=== PATIENT | female | born 1970 | race Caucasian/White ===

== ENCOUNTER 2018-03-21 06:12 | Day surgery (SDC) | payer SELFPAY ==
[2018-03-20 15:09] VITALS: BMI 29.2
[2018-03-21] MEDS ORDERED: ceFAZolin SODIUM 1 GM VIAL ONE ×3 (06:59→22:21)
[2018-03-21] MEDS ORDERED: HEPARIN NA (PORCINE) 5,000 UNITS/ML 1ML VIAL ONE (06:59)
[2018-03-21] MEDS ORDERED: EPINEPHrine/PF 1 MG/1 ML (1:1,000) AMPULE ONE (07:25)
[2018-03-21] MEDS ORDERED: BUPIVACAINE HCL/PF 0.25% (2.5MG/ML) 10 ML VIAL ONE ×2 (07:26→09:57)
[2018-03-21] MEDS ORDERED: LIDOCAINE HCL 1%, 10 MG/ML (20ML VIAL) ONE (07:26)
[2018-03-21] MEDS ORDERED: fentaNYL CITRATE 250 MCG/5 ML VIAL ONE (07:49)
[2018-03-21] MEDS ORDERED: ROCURONIUM BROMIDE 50 MG/5 ML VIAL ONE (07:49)
[2018-03-21] MEDS ORDERED: MIDAZOLAM HCL 2 MG/2 ML SINGLE DOSE VIAL ONE (07:49)
[2018-03-21] MEDS ORDERED: PROPOFOL 20 ML ONE (07:49)
[2018-03-21] MEDS ORDERED: LIDOCAINE HCL/PF 2% SDV 5ML VIAL ONE (07:50)
[2018-03-21] MEDS ORDERED: ceFAZolin SODIUM 1 GM VIAL IVPB ONE (08:13)
[2018-03-21] MEDS ORDERED: SODIUM CHLORIDE 0.9% P/F 10 ML VIAL IJ ONE (08:16)
[2018-03-21] MEDS ORDERED: DEXAMETHASONE SOD PHOSPHATE 4 MG/1 ML VIAL ONE ×2 (08:33→11:44)
[2018-03-21] MEDS ORDERED: BUPIVACAINE HCL/PF 0.25% (2.5MG/ML) 10 ML VIAL IJ ONE (10:20)
[2018-03-21] MEDS ORDERED: GLYCOPYRROLATE 0.2 MG/1 ML VIAL ONE ×2 (11:19→11:36)
[2018-03-21] MEDS ORDERED: NEOSTIGMINE METHYLSULFATE 0.5 MG/ML - 10 ML MDV ONE (11:19)
[2018-03-21] MEDS ORDERED: BACITRACIN 15 GM TUBE TOPICAL OINTMENT ONE (11:43)
[2018-03-21] MEDS ORDERED: BACITRACIN 15 GM TUBE TOPICAL OINTMENT TP ONE (11:57)
[2018-03-21] MEDS ORDERED: METOPROLOL TARTRATE 5 MG/5 ML VIAL ONE (12:01)
[2018-03-21] MEDS ORDERED: ONDANSETRON 4 MG/2 ML VIAL IVPB PRN (12:12)
[2018-03-21] MEDS ORDERED: PROMETHAZINE HCL 25 MG/1 ML VIAL IVPUSH PRN (12:14)
[2018-03-21] MEDS ORDERED: ONDANSETRON 4 MG/2 ML VIAL IVPUSH PRN (12:14)
[2018-03-21] MEDS ORDERED: LACTATED RINGERS SOLUTION 1,000 ML IV SCH ×2 (12:15)
--- NOTE | 2018-03-21 12:19 | OP ---
Operative Note - Note: Operative Date: 03/21/18 Pre-Operative Diagnosis: abdominal deformity Operation: abdominoplasty with flank liposuction Post-Operative Diagnosis: Same as Pre-op Surgeon: Brian Mullins Anesthesia: General
--- NOTE | 2018-03-21 13:58 | OP ---
DATE OF OPERATION: 03/21/2018 TITLE OF PROCEDURE: Abdominoplasty with bilateral flank liposuction. PREOPERATIVE DIAGNOSIS: Abdominal and flank lipodystrophy. POSTOPERATIVE DIAGNOSIS: Abdominal and flank lipodystrophy. ATTENDING SURGEON: Brian Archer MD ASSISTANTS: None. ANESTHESIA: General endotracheal. Patient is seen in the holding area. She had been counseled on all risks, benefits, and alternatives to the procedure, understands, and agrees to proceed. She is marked in a standing position, wide awake, aware of all incisions and resulting scars. The patient is then given 5000 units of subcutaneous heparin. She is given FLORA hose and sequential compression stockings. She is brought into the operating room, placed in a supine position. All position is checked by surgical and anesthesia teams, and all pressure points are carefully padded. A pillow is placed beneath the knees. Newton catheter is placed after induction of general anesthesia, which was removed at the end of the procedure. After anesthesia is given, she was prepped and draped in standard surgical fashion. A timeout is called. Patient, procedure, site, and sides are verified. DESCRIPTION OF PROCEDURE: An incision is made along the infrapannicular crease. The dissection is carried down to the level of the abdominal wall fascia. Dissection is carried along the abdominal wall fascia, ligating any perforating blood vessels to the level of the umbilicus. The umbilicus is then circumcised and developed on a fibrofatty stalk to the base of the fascia. Dissection is then continued cephalad to the xiphoid process and midline costal margins bilaterally. The midline plication is then performed with a series of interrupted, buried, figure-of-8 number 1 Prolene sutures both superior and inferior to the umbilicus. A second layer of running locking number 1 Prolene suture is then used both inferior and superior to the umbilicus for reinforcement. Adequate space is given at the umbilicus for translocation. The wound is copiously irrigated. Hemostasis is meticulously achieved. The patient is brought to a 30-degree flexed position where the abdominoplasty flap is marked for its resection. The skin is tailor tacked. The resection is performed. Hemostasis is once again meticulously achieved, and skin is tailor tacked once again for alignment for closure. The umbilicus is then marked. It is planned for translocation with a Star Trek pattern incision on the abdominoplasty flap. The umbilicus is then itself converted into the same pattern. Defect is created on the abdominoplasty flap through which the umbilicus is transposed. It is secured at its apices with a series of interrupted 4-0 nylon suture. The remainder of the closure is then performed with a series of interrupted, buried, deep dermal 3-0 Monocryl suture, followed by a running 4-0 nylon suture. The inferior flap of the abdominoplasty umbilicus defect is inset into the 6 o'clock notch of the umbilicus. Size 10 flat TRINO drains are brought out through the incision. The right drain is in the superior extent of the wound. The left drain is in the inferior extent of the wound. Drains were secured with a 2-0 silk drain suture. At this point, the bilateral flanks are infiltrated with wetting solution. Wetting solution is a liter of normal saline with 1 ampule of 1:1000 epinephrine and 20 mL of 1% lidocaine plain. A total of 300 mL of wetting solution is infiltrated into each flank while the remainder of the closure is performed. Closure is performed with a series of interrupted, buried, superficial fascial Jose C layer 2-0 Vicryl suture, followed by a series of interrupted, buried, deep dermal 3-0 Monocryl suture. At this point, the liposuction is then performed, having waited 20 minutes for the hemostatic effect of the infiltration. Liposuction performed with a 4-mm cannula using a power-assisted MicroAire system. The liposuction aspirate from either flank is 300 mL. The endpoint is smooth, even contour and the appearance of blood within the liposuction aspirate. The final closure is then performed with a running V-Loc 3-0 Monocryl suture within the mid-dermis with several 5-0 nylon sutures to perfect the final closure. All tissue was pink and viable at the end of the procedure. Dressings were applied with Steri-Strips, 4 x 4 gauze, ABD gauze, and an abdominal binder. It should be noted that 1 additional stab wound incision is made in the left flank for better access to the posterior aspect of the flank. That is closed with a 5-0 nylon suture and an eye patch and Tegaderm. Drains were placed to bulb suction. Patient was awoken from anesthesia, maintained in a flexed position. Newton catheter was removed. She was transferred to her hospital bed with no bucking. No complications. BRIAN ARCHER M.D. [id number]
[2018-03-21] MEDS: morphine SULFATE 4 MG/ML VIAL IVPUSH PRN ×2 (16:16→22:23)
[2018-03-21] MEDS ORDERED: DEXTROSE 5%-WATER - 50 ML IVPB ONE ×2 (17:11→22:21)
[2018-03-21] MEDS: CEFAZOLIN 1 GM in DEXTROSE 5%-WATER - 50 ML IVPB SCH (17:18)
[2018-03-22] MEDS: CEFAZOLIN 1 GM in DEXTROSE 5%-WATER - 50 ML IVPB SCH ×2 (01:28→09:27)
[2018-03-22] MEDS: oxyCODONE HCL 5 MG TABLET PO PRN ×2 (05:16→09:27)
[2018-03-22] MEDS: HEPARIN NA (PORCINE) 5,000 UNITS/ML 1ML VIAL SQ SCH ×2 (06:51→09:26)
--- NOTE | 2018-03-22 06:52 | PN ---
Progress Note (short form) - Note Progress Note: POD 1 Ambulating, RYAN PO Pain well controlled TRINO's thin and low output All tissues viable, no hematoma ot collection or infection All instructions reviewed and ok to d/c home after gets sq heparin
[2018-03-22 09:00] VITALS: BP 103/56; PULSE 68; TEMP 98.2
[2018-03-22] MEDS ORDERED: DEXTROSE 5%-WATER - 50 ML IVPB ONE (09:23)
[2018-03-22] MEDS ORDERED: ceFAZolin SODIUM 1 GM VIAL ONE (09:23)
== END 2018-03-22 11:03 | disposition home or self-care (01) ==
LOC: JASUSAT 06:12 → J8W 15:49 → JASUSAT 03-22 11:03
PROVIDERS: ATTEND Plastic Surgery
PROC: 0J080ZZ Alteration of Abdomen Subcutaneous Tissue and Fascia, Open Approach (ICD-10-PCS; principal; 2018-03-21 08:00)
PROC: 0J083ZZ Alteration of Abdomen Subcutaneous Tissue and Fascia, Percutaneous Approach (ICD-10-PCS; 2018-03-21 08:00)
DX: E88.1 Lipodystrophy, not elsewhere classified (principal)
CPT/HCPCS: 84703; 94760; J1644

== ENCOUNTER 2022-09-11 03:54 | Day surgery (SDC) | payer BC, OTHER ==
[2022-09-08 09:26] VITALS: BMI 30.7
[2022-09-11 11:41] VITALS: RESP 16
[2022-09-11] MEDS ORDERED: MIDAZOLAM HCL 2 MG/2 ML SINGLE DOSE VIAL ONE (13:22)
[2022-09-11] MEDS ORDERED: PROPOFOL 20 ML ONE (13:32)
[2022-09-11 18:00] VITALS: TEMP 97.5
[2022-09-11 18:05] VITALS: BP 120/80; PULSE 74
== END 2022-09-11 15:45 | disposition home or self-care (01) ==
LOC: JASU-SURG 03:54
PROVIDERS: ATTEND Urology
PROC: 0TF4XZZ Fragmentation in Left Kidney Pelvis, External Approach (ICD-10-PCS; principal; 2022-09-11 13:00)
DX: N20.0 Calculus of kidney (principal)
CPT/HCPCS: 81025

== ENCOUNTER 2022-12-04 04:22 | Day surgery (SDC) | payer BC, OTHER ==
[2022-11-28 13:38] VITALS: BMI 30.7
[2022-12-04 11:39] VITALS: RESP 20
[2022-12-04] MEDS ORDERED: MIDAZOLAM HCL 2 MG/2 ML SINGLE DOSE VIAL ONE (14:08)
[2022-12-04] MEDS ORDERED: PROPOFOL 20 ML ONE (14:30)
[2022-12-04 15:59] VITALS: BP 119/70; PULSE 68; TEMP 97
== END 2022-12-04 15:59 | disposition home or self-care (01) ==
LOC: JASU-SURG 04:22
PROVIDERS: ATTEND Urology
PROC: 0TF4XZZ Fragmentation in Left Kidney Pelvis, External Approach (ICD-10-PCS; principal; 2022-12-04 13:00)
DX: N20.0 Calculus of kidney (principal)
CPT/HCPCS: 81025

== ENCOUNTER 2024-01-11 04:04 | Day surgery (SDC) | payer BC, OTHER ==
[2024-01-03 12:04] VITALS: BMI 29.3
[2024-01-11 06:43] VITALS: RESP 18
[2024-01-11] MEDS ORDERED: LIDOCAINE HCL/PF 1% SDV 5ML VIAL ONE (07:12)
[2024-01-11] MEDS ORDERED: DEXAMETHASONE SOD PHOSPHATE 10 MG/1 ML VIAL ONE (07:13)
[2024-01-11] MEDS ORDERED: ACETAMINOPHEN 500 MG TABLET (FP) PO PRN (08:03)
[2024-01-11] MEDS: IOHEXOL 180 MG/1 ML ML IJ ONE (08:14)
[2024-01-11] MEDS: LIDOCAINE HCL 1%, 10 MG/ML (20ML VIAL) INF ONE (08:15)
[2024-01-11] MEDS: DEXAMETHASONE SOD PHOSPHATE 10 MG/1 ML VIAL IM ONE (08:15)
[2024-01-11 09:23] VITALS: BP 129/69; PULSE 60; TEMP 98.4
== END 2024-01-11 08:38 | disposition home or self-care (01) ==
LOC: JASU-SURG 04:04
PROVIDERS: ATTEND Pain Medicine Pain Medicine
PROC: 3E0R3BZ Introduction of Anesthetic Agent into Spinal Canal, Percutaneous Approach (ICD-10-PCS; 2024-01-11)
PROC: 3E0R33Z Introduction of Anti-inflammatory into Spinal Canal, Percutaneous Approach (ICD-10-PCS; principal; 2024-01-11 08:00)
DX: M54.16 Radiculopathy, lumbar region (principal)
CPT/HCPCS: 76000-TC-FY; 81025; J1100

== ENCOUNTER 2024-06-13 04:04 | Day surgery (SDC) | payer BC, OTHER ==
[2024-06-10 15:02] VITALS: BMI 30.7
[2024-06-13] MEDS: DEXAMETHASONE SOD PHOSPHATE 10 MG/1 ML VIAL IVPUSH ONE (09:34)
[2024-06-13] MEDS: LIDOCAINE HCL 1% PRESERVATIVE FREE - 30ML VIAL IJ ONE (09:35)
[2024-06-13] MEDS: IOHEXOL 180 MG/1 ML ML IJ ONE (09:35)
[2024-06-13] MEDS: ACETAMINOPHEN 500 MG TABLET (FP) PO PRN (09:50)
[2024-06-13] MEDS ORDERED: ACETAMINOPHEN 500 MG TABLET (FP) ONE (09:50)
[2024-06-13 10:28] VITALS: BP 143/82; PULSE 73; RESP 20; TEMP 98.3
== END 2024-06-13 10:16 | disposition home or self-care (01) ==
LOC: JASU-SURG 04:04
PROVIDERS: ATTEND Pain Medicine Pain Medicine
PROC: 3E0R3BZ Introduction of Anesthetic Agent into Spinal Canal, Percutaneous Approach (ICD-10-PCS; 2024-06-13)
PROC: 3E0R33Z Introduction of Anti-inflammatory into Spinal Canal, Percutaneous Approach (ICD-10-PCS; principal; 2024-06-13 08:45)
DX: M54.12 Radiculopathy, cervical region (principal)
CPT/HCPCS: 76000-TC-FY; 81025; J1100